=== PATIENT | female | born 1950 | race African-American/Black ===

== ENCOUNTER 2018-03-12 18:44 | Emergency (ER) | payer MEDICARE, MEDICAID ==
[~2018-03-12] VITALS: Ht 177.8 cm; Wt 139.5 kg
[2018-03-12 18:46] VITALS: BP 185/90
== END 2018-03-13 00:34 | disposition left against medical advice (07) ==
LOC: ER 21:12
DX: Z53.21 Procedure and treatment not carried out due to patient leaving prior to being seen by health care provider (principal)